=== PATIENT | male | born 1990 | race Hispanic/Latino ===

== ENCOUNTER 2020-03-13 07:36 | Outpatient (CLI) | payer BC ==
--- NOTE | 2020-03-13 09:15 | ULT ---
ABDOMINAL ULTRASOUND: Date: 03/13/2020 HISTORY: Abdominal pain. Palpable area in right upper quadrant. FINDINGS: Real-time imaging of the upper abdomen was performed. This shows a normal appearing gallbladder. The common duct is 3.0 mm. The visualized liver parenchyma shows no focal findings. The spleen measures 1 0.7 cm in length. A 2.8 cm hypoechoic lesion within the spleen does not correspond to a cyst. Right and left kidneys are normal in size and not obstructed. The pancreas, abdominal aorta, and IVC regions are unremarkable. Pancreas partially obscured. Imaging of the right upper quadrant findings shows a superficial slightly echogenic 6 x 15 mm subcuta neous mass. This probably represents a small lipoma. IMPRESSION: 1. Probable small lipoma in the right upper quadrant. 2. 2.8 cm splenic mass which does not correspond to a cyst. Given patient's age and lack of any hist ory of malignancy, this is most likely a benign etiology. Ultrasound features are nondescript. POS: SEAN
== END 2020-03-13 07:37 | disposition home or self-care (01) ==
LOC: BICULT 07:36
PROVIDERS: ATTEND Family Medicine
DX: R10.84 Generalized abdominal pain (principal); R16.1 Splenomegaly, not elsewhere classified
CPT/HCPCS: 93975

== ENCOUNTER 2021-02-05 07:55 | Outpatient (CLI) | payer BC | END 2021-02-05 07:56 | disposition home or self-care (01) | LOC: BICULT 07:55 | PROVIDERS: ATTEND Family Medicine | DX: R10.84 Generalized abdominal pain (principal); D73.9 Disease of spleen, unspecified | CPT/HCPCS: 93975 ==